=== PATIENT | male | born 2000 | race Caucasian/White ===

== ENCOUNTER 2024-05-17 15:34 | Emergency (ER) | payer OTHER ==
[~2024-05-17] VITALS: Ht 190.5 cm; Wt 106.6 kg
== END 2024-05-17 18:50 | disposition home or self-care (01) ==
LOC: ER 15:34
DX: S29.9XXA Unspecified injury of thorax, initial encounter (principal); R07.89 Other chest pain; G50.1 Atypical facial pain; Z88.8 Allergy status to other drugs, medicaments and biological substances; W23.0XXA Caught, crushed, jammed, or pinched between moving objects, initial encounter; Y99.0 Civilian activity done for income or pay
CPT/HCPCS: 99283